=== PATIENT | male | born 1990 | race Caucasian/White ===

== ENCOUNTER 2017-08-11 01:43 | Emergency (ER) | payer OTHER ==
[~2017-08-11] VITALS: Ht 177.8 cm; Wt 90.7 kg
== END 2017-08-11 06:38 | disposition home or self-care (01) ==
LOC: ER 01:43
DX: T68.XXXA Hypothermia, initial encounter (principal); F17.210 Nicotine dependence, cigarettes, uncomplicated

== ENCOUNTER 2018-07-04 18:57 | Emergency (ER) | payer OTHER ==
[~2018-07-04] VITALS: Ht 172.7 cm; Wt 94.3 kg
[2018-07-04 19:53] LABS: HEMATOCRIT 49.1 % (42.0-52.0); HEMOGLOBIN 17.2 gm/dL (14.0-18.0); MCH 30.6 pg (26.0-34.0); MCHC 34.9 g/dL (28.0-37.0); MCV 87.7 fL (80.0-100.0); RBC 5.61 mil/uL (4.50-6.00); RDW 13.4 % (10.5-14.5); WBC 9.2 thou/uL (4.0-11.0)
[2018-07-04 19:55] LABS: POTASSIUM 3.7 mmol/L (3.5-5.1)
[2018-07-04 20:01] LABS: ALBUMIN 4.9 g/dL (3.4-5.0); TOTAL BILIRUBIN 0.6 mg/dL (<0.1-1.0)
[2018-07-04 20:10] LABS: URINE BILIRUBIN NEGATIVE (Negative); URINE BLOOD NEGATIVE (Negative); URINE CLARITY CLEAR; URINE COLOR YELLOW; URINE GLUCOSE-RANDOM* NEGATIVE (Negative); URINE KETONES NEGATIVE (Negative); URINE LEUKOCYTES-REFLEX NEGATIVE (Negative); URINE NITRITE-REFLEX NEGATIVE (Negative); URINE PROTEIN (DIPSTICK) NEGATIVE (Negative); URINE UROBILINOGEN 0.2 E.U./dl (0.2-1.0)
[2018-07-04 20:18] LABS: AMP/METHAMP Negative (Negative); BARBITURATES Negative (Negative); BENZODIAZEPINES Negative (Negative); COCAINE Negative (Negative); METHADONE Negative (Negative); OPIATES Negative (Negative); PCP Negative (Negative)
[2018-07-05 08:52] VITALS: BP 108/57
== END 2018-07-05 08:53 | disposition short-term general hospital (02) ==
LOC: ER 18:57 → EDBD 18:57 → ER 07-05 08:53
PROVIDERS: Emergency Medicine
DX: F20.9 Schizophrenia, unspecified (principal); F17.210 Nicotine dependence, cigarettes, uncomplicated

== ENCOUNTER 2020-05-08 22:23 | Emergency (ER) | payer OTHER ==
[~2020-05-08] VITALS: Ht 175.3 cm; Wt 90.7 kg
--- NOTE | ~2020-05-08 | EMS ---
[facility] [address] [place] [address] EMS Patient Care Report Name: TAMIKA GRIGGS Room #: REG NICK Chacon#: [id number] Admission: 05/08/20 Attend Phys: Discharge: Date of : [birth year] Report #: [id number] THIS REPORT FOR: //name// Report Transmitted: 05/08/2020 23:43 EMS Care Summary [place], [place]/[facility] Incident [id number] @ 05/08/2020 22:02 Incident Location [address] [place] [address] Patient TAMIKA GRIGGS Male, 30 Years 1990 Patient Address [address] [place] [address] Patient History Behavioral/Psychiatric Disorder,Back Pain (Chronic), Patient Allergies No known allergies, Patient Medications None Reported, Chief Complaint BACK SPASMS Disposition Transported No Lights/[place] Dispatch Reason Back Pain (Non-Traumatic) Transported To [facility] Narrative RESPONDED TO BACK PAIN OUTSIDE BY STREET. UPON ARRIVAL FF REPORTS PT IS HOMELESS AND WHEN HE ATTEMPTED TO SET UP TENT HE BEGAN TO HAVE BACK SPASMS. PT REPORTS HAVING ON/OFF BACK PAINS FOR 5 DAYS. PT DENIES ANY COVID SYMPTOMS WHEN ASKED. PT REPORTS BEING SEEN IN HOSPITAL EARLIER THIS WEEK FOR BEHAVIORAL [facility] [address] [place] [address] EMS Patient Care Report Name: TAMIKA GRIGGS Room #: REG ER Oswaldo#: [id number] Admission: 05/08/20 Attend Phys: Discharge: Date of : 86 Report #: [id number] ISSUES BUT DID NOT ELABORATE. PT WALKED TO AMBULANCE BENCHAT AND SEATBELTS APPLIED. PT VITALS OBTAINED. PT TRANSPORTED TO [facility] AND STAFF DIRECTED EMS TO TRIAGE AREA. PT WALKED TO TRIAGE WITH EMS AND REPORT GIVEN TO NURSE. Initial Vitals @22:18P: 112,R: 18,BP: 148/88,Pain: 4/10,GCS: 15,SpO2: 98,Revised Trauma: 12, @22:12P: 115,R: 18,BP: 138/76,GCS: 15,SpO2: 98,Revised Trauma: 12, Assessments @22:10MENTAL:Time Oriented,Person Oriented,Place Oriented,Event Oriented,SKIN:HEENT:Head/Face: No Abnormalities,Neck/Airway: No Abnormalities,LUNG SOUNDS:General: No Abnormalities,ABDOMEN:General: No Abnormalities,PELVIS//GI:No Abnormalities,EXTREMITIES:Left Arm: No Abnormalities,Right Arm: No Abnormalities,Left Leg: No Abnormalities,Right Leg: No Abnormalities,PULSE:NEURO:No Abnormalities,@22:20MENTAL:No Abnormalities,SKIN:No Abnormalities,HEENT:Head/Face: No Abnormalities,Eyes: No Abnormalities,Neck/Airway: No Abnormalities,LUNG SOUNDS:General: No Abnormalities,Left Upper: No Abnormalities,Right Upper: No Abnormalities,Left Lower: No Abnormalities,Right Lower: No Abnormalities,ABDOMEN:General: No Abnormalities,Left Upper: No Abnormalities,Right Upper: No Abnormalities,Left Lower: No Abnormalities,Right Lower: No Abnormalities,PELVIS//GI:No Abnormalities,EXTREMITIES:Left Arm: No Abnormalities,Right Arm: No Abnormalities,Left Leg: No Abnormalities,Right Leg: No Abnormalities,PULSE:NEURO:No Abnormalities, Impression Back Pain Procedures @22:10ALS AssessmentResponse: UnchangedSucceeded Timeline 21:54,Call Received 21:54,Dispatch Notified 22:02,Dispatched 22:04,En Route 22:10,On Scene 22:10,At Patient 22:10,ALS Assessment,Response: UnchangedSucceeded, 22:12,BP: 138/76 M,PULSE: 115,RR: 18 R,SPO2: 98 Ox,ETCO2: ,BG: ,PAIN: ,GCS: 15, 22:13,Depart Scene 22:18,BP: 148/88 M,PULSE: 112,RR: 18 R,SPO2: 98 Ox,ETCO2: ,BG: ,PAIN: 4,GCS: 15, 22:22,At Destination 22:30,Call Closed [address] [address] EMS Patient Care Report Name: TAMIKA GRIGGS Room #: REG [facility].R.#: [id number] Admission: 05/08/20 Attend Phys: Discharge: Date of : [birth year] Report #: [id number] Disclaimer v1.1 Copyright 2020 [employer] This EMS Care Summary contains data elements from the applicable legal record (which may be displayed differently). It is designed to provide pertinent information for the following purposes: continuity of care, clinical quality, and state data reporting. The complete legal record is available to ED staff and administrators of the receiving hospital in [facility]'s Patient Tracker. All data is provided "as is."
--- NOTE | ~2020-05-08 | EMS ---
[facility] [address] [place] [address] EMS Patient Care Report Name: TAMIKA GRIGGS Room #: REG NICK Chacon#: [id number] Admission: 05/08/20 Attend Phys: Discharge: Date of : [birth year] Report #: [id number] THIS REPORT FOR: //name// Report Transmitted: 05/08/2020 23:16 EMS Care Summary [place], [place]/[facility] Incident [id number] @ 05/08/2020 22:02 Incident Location [address] [place] [address] Patient TAMIKA GRIGGS Male, 30 Years 1990 Patient Address [address] [place] [id number] Patient History Behavioral/Psychiatric Disorder,Back Pain (Chronic), Patient Allergies No known allergies, Patient Medications None Reported, Chief Complaint BACK SPASMS Disposition Transported No Lights/[place] Dispatch Reason Back Pain (Non-Traumatic) Transported To [facility] Narrative RESPONDED TO BACK PAIN OUTSIDE BY STREET. UPON ARRIVAL FF REPORTS PT IS HOMELESS AND WHEN HE ATTEMPTED TO SET UP TENT HE BEGAN TO HAVE BACK SPASMS. PT REPORTS HAVING ON/OFF BACK PAINS FOR 5 DAYS. PT DENIES ANY COVID SYMPTOMS WHEN ASKED. PT REPORTS BEING SEEN IN HOSPITAL EARLIER THIS WEEK FOR BEHAVIORAL [facility] [address] [place] [address] EMS Patient Care Report Name: TAMIKA GRIGGS Room #: REG ER Oswaldo#: [id number] Admission: 05/08/20 Attend Phys: Discharge: Date of : [birth year] Report #: [id number] ISSUES BUT DID NOT ELABORATE. PT WALKED TO AMBULANCE BENCHSEAT AND SEATBELTS APPLIED. PT VITALS OBTAINED. PT TRANSPORTED TO [facility] AND STAFF DIRECTED EMS TO TRIAGE AREA. PT WALKED TO TRIAGE WITH EMS AND REPORT GIVEN TO NURSE. Initial Vitals @22:18P: 112,R: 18,BP: 148/88,Pain: 4/10,GCS: 15,SpO2: 98,Revised Trauma: 12, @22:12P: 115,R: 18,BP: 138/76,GCS: 15,SpO2: 98,Revised Trauma: 12, Assessments @22:10MENTAL:Time Oriented,Person Oriented,Place Oriented,Event Oriented,SKIN:HEENT:Head/Face: No Abnormalities,Neck/Airway: No Abnormalities,LUNG SOUNDS:General: No Abnormalities,ABDOMEN:General: No Abnormalities,PELVIS//GI:No Abnormalities,EXTREMITIES:Left Arm: No Abnormalities,Right Arm: No Abnormalities,Left Leg: No Abnormalities,Right Leg: No Abnormalities,PULSE:NEURO:No Abnormalities,@22:20MENTAL:No Abnormalities,SKIN:No Abnormalities,HEENT:Head/Face: No Abnormalities,Eyes: No Abnormalities,Neck/Airway: No Abnormalities,LUNG SOUNDS:General: No Abnormalities,Left Upper: No Abnormalities,Right Upper: No Abnormalities,Left Lower: No Abnormalities,Right Lower: No Abnormalities,ABDOMEN:General: No Abnormalities,Left Upper: No Abnormalities,Right Upper: No Abnormalities,Left Lower: No Abnormalities,Right Lower: No Abnormalities,PELVIS//GI:No Abnormalities,EXTREMITIES:Left Arm: No Abnormalities,Right Arm: No Abnormalities,Left Leg: No Abnormalities,Right Leg: No Abnormalities,PULSE:NEURO:No Abnormalities, Impression Back Pain Procedures @22:10ALS AssessmentResponse: UnchangedSucceeded Timeline 21:54,Call Received 21:54,Dispatch Notified 22:02,Dispatched 22:04,En Route 22:10,On Scene 22:10,At Patient 22:10,ALS Assessment,Response: UnchangedSucceeded, 22:12,BP: 138/76 M,PULSE: 115,RR: 18 R,SPO2: 98 Ox,ETCO2: ,BG: ,PAIN: ,GCS: 15, 22:13,Depart Scene 22:18,BP: 148/88 M,PULSE: 112,RR: 18 R,SPO2: 98 Ox,ETCO2: ,BG: ,PAIN: 4,GCS: 15, 22:22,At Destination 22:30,Call Closed [address] [address] EMS Patient Care Report Name: TAMIKA GRIGGS Room #: REG Jaja.R.#: [id number] Admission: 05/08/20 Attend Phys: Discharge: Date of : 86 Report #: [id number] Disclaimer v1.1 Copyright 2020 [employer] This EMS Care Summary contains data elements from the applicable legal record (which may be displayed differently). It is designed to provide pertinent information for the following purposes: continuity of care, clinical quality, and state data reporting. The complete legal record is available to ED staff and administrators of the receiving hospital in [facility]'s Patient Tracker. All data is provided "as is."
[2020-05-09 00:30] LABS: ABSOLUTE NEUTROPHILS 5.2 thou/uL (1.4-8.2); BASOPHILS 1.8 % (0.0-2.0); HEMATOCRIT 42.9 % (42.0-52.0); HEMOGLOBIN 14.5 gm/dL (14.0-18.0); LYMPHOCYTES 30.2 % (24.0-44.0); MCH 29.6 pg (26.0-34.0); MCHC 33.7 g/dL (28.0-37.0); MCV 87.9 fL (80.0-100.0); MONOCYTES 7.2 % (1.0-8.0); PLATELET COUNT 230 thou/uL (150-400); POLYS 58.8 % (36.0-66.0); RBC 4.89 mil/uL (4.50-6.00); RDW 13.2 % (10.5-14.5); WBC 8.8 thou/uL (4.0-11.0)
[2020-05-09 00:36] LABS: ANION GAP 9 mmol/L (7-16); BUN 8 mg/dL (7-18); CALCIUM 8.5 mg/dL (8.5-10.1); CHLORIDE 100 mmol/L (98-107); CO2 25 mmol/L (21-32); CREATININE 0.9 mg/dL (0.7-1.3); GLUCOSE 232 mg/dL (74-106); SODIUM 134 mmol/L (136-145)
[2020-05-09 00:48] LABS: ALBUMIN 3.8 g/dL (3.4-5.0); SGOT 19 U/L (15-37); SGPT 46 U/L (30-65); TOTAL BILIRUBIN 0.4 mg/dL (0.2-1.0); TOTAL PROTEIN 6.7 g/dL (6.4-8.2); TROPONIN-I <0.06 ng/mL (<0.06)
[2020-05-09 01:15] VITALS: BP 129/76
== END 2020-05-09 01:11 | disposition home or self-care (01) ==
LOC: ER 22:23
PROVIDERS: Student in an Organized Health Care Education/Training Program
DX: R73.9 Hyperglycemia, unspecified (principal); F17.210 Nicotine dependence, cigarettes, uncomplicated

== ENCOUNTER 2020-05-13 19:31 | Emergency (ER) | payer OTHER ==
[~2020-05-13] VITALS: Ht 175.3 cm; Wt 99.8 kg
[2020-05-13 19:34] VITALS: BP 131/80
[2020-05-13] MEDS ORDERED: CLOZAPINE25 MG PO (20:31)
== END 2020-05-13 20:30 | disposition left against medical advice (07) ==
LOC: ER 19:31 → EDBD 19:31 → ER 20:30
DX: F20.9 Schizophrenia, unspecified (principal); F17.210 Nicotine dependence, cigarettes, uncomplicated; Z76.0 Encounter for issue of repeat prescription